=== PATIENT | female | born 1945 | race Caucasian/White ===

== ENCOUNTER → 2016-10-17 | Outpatient (CLI) | payer BC ==
[~2016-10-17] VITALS: Ht 160 cm; Wt 81.1 kg
[~2016-10-17] MED LIST: ABL/5 PO; ABL5 PO; ASPI81TA28 PO; B-CO1CAP3 PO; BIOT1CAP3 PO; BUPR-79 PO; BUPRTAB51 PO; BUSP-8 PO; CGN5 PO; CHOL20005 PO; CYAN50003 PO; DRGTP50 TOP; FENT50DI19 TD; GABA1CAP PO; GABA300C19 PO; L-ME1CAP PO; MECL1TAB42 PO; OMEP20CA9 PO; RANI300T2 PO; ROPI0.5T15 PO; SERT1TAB92 PO; ZOLP5TAB6 PO
[2016-10-17 15:01] VITALS: BP 127/79; PULSE 66; Ht 160 cm; Wt 81.1 kg
== END | disposition home or self-care (01) ==
LOC: C.NEUR 14:11
PROVIDERS: ATTEND Internal Medicine Pulmonary Disease
DX: G47.30 Sleep apnea, unspecified (principal)

== ENCOUNTER → 2016-10-29 | Outpatient (CLI) | payer BC ==
[2016-10-29 14:14] LABS: BLOOD UREA NITROGEN 17 mg/dl (7-18); BUN/CREATININE RATIO 16.9 (10-20); CARBON DIOXIDE 31 mmol/L (21-32); CHLORIDE 105 mmol/L (98-107); GLUCOSE 88 mg/dl (70-99); GLUCOSE,FASTING 88 mg/dl (70-99); POTASSIUM 4.2 mmol/L (3.5-5.1); SODIUM 142 mmol/L (136-145)
[2016-10-29 14:25] LABS: CHOLESTEROL 304 mg/dl (0-200); CHOLESTEROL/HDL RATIO 2.9; HDL CHOLESTEROL 104 mg/dl; LDL CHOLESTEROL CALCULATED 184 mg/dl; TRIGLYCERIDES 78 mg/dl (0-150); VERY LOW DENSITY LIPOPROT CALC 16 mg/dl
== END | disposition home or self-care (01) ==
LOC: C.LAB1850 12:18
PROVIDERS: ATTEND Psychiatry & Neurology Psychiatry
DX: F33.2 Major depressive disorder, recurrent severe without psychotic features (principal); Z51.81 Encounter for therapeutic drug level monitoring; Z79.899 Other long term (current) drug therapy

== ENCOUNTER → 2016-12-23 | Outpatient (CLI) | payer BC ==
[2016-12-24 17:08] LABS: ALBUMIN 4.4 G/DL (3.8-4.8); GAMMA GLOBULIN 0.6 G/DL (0.8-1.7); TOTAL PROTEIN 6.5 G/DL (6.2-8.3)
--- NOTE | 2016-12-27 10:35 | CODING QUERY MEDICAL NECESSITY ---
SUPPORTING DIAGNOSIS NEEDED Dr. Ram, A supporting diagnosis is required for the test/procedure performed on this patient in order for us to be reimbursed by the patient's insurance. Please provide a supporting diagnosis for the following test/procedure listed below next to the test name along with your signature. *If there is no additional diagnosis for this patient that would support the following test/procedure please document that below next to the test/procedure. Test(s)/Procedure(s) that require a supporting diagnosis: * ([id number]) B12 VITAMIN LEVEL DIAGNOSIS: DATE OF SERVICE: 12/23/16 Provider Signature: Date: Thank you Domenic Urban [facility] Information Management Once completed, please kindly fax back to [phone] For questions please call [phone]
== END | disposition home or self-care (01) ==
LOC: C.LAB1850 10:36
PROVIDERS: ATTEND Psychiatry & Neurology Neurology
DX: G62.9 Polyneuropathy, unspecified (principal); R41.3 Other amnesia

== ENCOUNTER → 2017-02-25 | Outpatient (CLI) | payer BC ==
[~2017-02-25] MED LIST changes: +BENZ0.5T28 PO; -CGN5 PO; +GABA-1218 PO; -GABA300C19 PO
--- NOTE | 2017-02-25 15:22 | MAMMOGRAPHY REPORT ---
BILATERAL DIGITAL SCREENING MAMMOGRAM WITH CAD: 02/25/2017 CLINICAL HISTORY: Routine screening. Patient has no complaints. TECHNIQUE: Bilateral CC and MLO views were obtained. Current study was also evaluated with a Comput er Aided Detection (CAD) system. COMPARISON: Comparison is made to exams dated: 02/20/2016 mammogram, 02/13/2015 mammogram, 02/11/2014 m ammogram, 02/10/2013 mammogram, 02/07/2012 mammogram, and 02/13/2011 mammogram - [facility] nter. BREAST COMPOSITION: The tissue of both breasts is heterogeneously dense, which may obscure small ma sses. FINDINGS: No new suspicious mass, architectural distortion or cluster of microcalcifications is see n. IMPRESSION: ACR BI-RADS CATEGORY 1: NEGATIVE There is no mammographic evidence of malignancy. A 1 year screening mammogram is recommended. The p atient will receive written notification of the results. Approximately 10% of breast cancers are not detected with mammography. A negative mammographic repor t should not delay biopsy if a clinically suggestive mass is present. Rolanda Cornejo M.D. ay/:02/25/2017 13:49:56 Varnish Blender: Jacey Sosa RT(R)(M)(BD), [facility] letter sent: Normal 1/2 BI-RADS Code: ACR BI-RADS Category 1: Negative
== END | disposition home or self-care (01) ==
LOC: C.MAMM 11:16
PROVIDERS: ATTEND Family Medicine
DX: Z12.31 Encounter for screening mammogram for malignant neoplasm of breast (principal)

== ENCOUNTER 2017-04-19 13:02 | Emergency (ER) | payer BC ==
[~2017-04-19] VITALS: Ht 157.5 cm; Wt 73.8 kg
[~2017-04-19 13:02] MED LIST changes: -ABL/5 PO; -ASPI81TA28 PO; -B-CO1CAP3 PO; -BENZ0.5T28 PO; -BIOT1CAP3 PO; -BUPR-79 PO; +CGN5 PO; -CHOL20005 PO; -CYAN50003 PO; -DRGTP50 TOP; -GABA-1218 PO; -GABA1CAP PO; -L-ME1CAP PO; -MECL1TAB42 PO; -OMEP20CA9 PO; -RANI300T2 PO
[2017-04-19 13:07] VITALS: TEMP 36.5; Ht 157.5 cm; Wt 73.8 kg
[2017-04-19] MEDS ORDERED: ABL/5 PO (13:48)
[2017-04-19] MEDS ORDERED: OMEP20CA9 PO (13:48)
[2017-04-19] MEDS ORDERED: GABA300C19 PO (13:48)
[2017-04-19] MEDS ORDERED: RANI300T2 PO (13:48)
[2017-04-19] MEDS ORDERED: L-ME1CAP PO (13:48)
[2017-04-19] MEDS ORDERED: DRGTP50 TOP (13:48)
[2017-04-19] MEDS ORDERED: BUPR-79 PO (13:48)
[2017-04-19] MEDS ORDERED: GABA1CAP PO (13:48)
[2017-04-19] MEDS ORDERED: ASPI81TA28 PO (13:48)
[2017-04-19] MEDS ORDERED: B-CO1CAP3 PO (13:53)
[2017-04-19] MEDS ORDERED: BIOT1CAP3 PO (13:53)
[2017-04-19] MEDS ORDERED: CYAN50003 PO (13:53)
[2017-04-19] MEDS ORDERED: CHOL20005 PO (13:53)
[2017-04-19] MEDS ORDERED: ACETAMINOPHEN 500 MG TAB PO STA (14:16)
--- NOTE | 2017-04-19 14:26 | EMERGENCY ROOM VISIT NOTE ---
ED Visit Note First contact with patient: 13:59 CHIEF COMPLAINT: Head injury HISTORY OF PRESENT ILLNESS: This 71 year old female patient presented to the emergency department one day after experiencing a fall striking her head. She attempted to sit down on a chair and misjudged the depth. She fell on her buttocks and then struck her head backwards against the concrete. There was no loss of consciousness. She does complain of a throbbing all over headache. She also is having vertiginous symptoms particularly with changes of position. She denies any visual disturbances. No nausea or vomiting. She denies any neck pain. She denies any other injuries. She takes a baby aspirin daily. REVIEW OF SYSTEMS: A review of systems was performed with positives and pertinent negatives listed in the history of present illness. All other systems were reviewed and are negative. ALLERGIES: No known drug allergies MEDICATIONS: Medication list was verified with patient PMH: Fibromyalgia SOCIAL HISTORY: Denies alcohol or drug use. She does not smoke. She lives at home with her PHYSICAL EXAM: Vital Signs: Reviewed Nurse's notes, vital signs stable. GENERAL : 71-year-old female, in no acute distress, well-developed, well-nourished. NEURO: The patient is alert, oriented to person place and time, and coherent. Normal mini mental status exam. Negative pronator drift. Cerebellar function intact. HEAD: Normocephalic atraumatic. EYES: Pupils are equal round and reactive to light and accommodation. EOMs are full . There is no swelling or discoloration of the tissue surrounding the eyes. EARS: External auditory canals clear without blood. NOSE: Patent without tenderness. No septal hematoma. FACE: No facial bone tenderness. NECK: Supple. There is no cervical spine tenderness. The patient does not have tenderness with movement of the neck. ED COURSE: I examined the patient. She was given [address] of the head was performed and reviewed. Patient: DALILA SWANSON Address1: [address] [place] [address] Rec: [id number] Address2: Acct ID: [id number] [facility] Zip: [place] [address] Date: 1945 Sex: F Room/Bed: Ref Phy: Aleah Shaffer,DSowmyaOSowmya SC: DANIEL Att Phy: Report #: [id number] Astrid Phy: Aleah Shaffer D.O. Test: HWO Admit Phy: [employer] Mk1 Operator: MARIANA Interpreting Phy: Peter Browning M.D. Diagnosis: FALL,HIT HEAD Ordering Phy: Aubree Monahan PA-C Service Date: 04/19/17 Admit Date: 04/19/17 MNE: [id number] CONF: DICTATED BY: Peter Browning M.D.]] CC: Aleah Shaffer D.O. Mishock, Kevin, D.O. Urban, Angela P., PA-C Endcc: [~ rep ct add3]] HEAD WITHOUT CONTRAST (CT) CT DOSE: 655.73 mGy.cm HISTORY: Trauma. Mental status change. head injury, vertigo TECHNIQUE: Multiaxial CT images of the head were performed without the use of intravenous contrast. Comparison: 06/18/2015 Findings: Chronic mucosal thickening of the posterior left ethmoid air cells. Mastoid air cells are clear. The calvarium and skull base are intact. The ventricles and sulci are within normal limits. There is no mass, hematoma, midline shift, or acute infarct. Stable dural calcification left considered chronic. No acute intracranial hemorrhage. Mild stable bilateral atrophy. Impression: Chronic changes as noted. No acute intracranial abnormality. The above report was generated using voice recognition software. It may contain grammatical, syntax or spelling errors. Electronically signed by: Peter Browning M.D. 04/19/2017 2:51 PM Dictated Date/Time: 04/19/2017 2:49 PM The status of this report is Signed. Draft = Not yet reviewed or approved by Radiologist. Signed = Reviewed and approved by Radiologist. . the patient was reevaluated. We reviewed the results of her CAT scan. She voiced understanding. The patient had difficulty ambulating. The emergency department staff tried to get her up to ambulate with a walker. She was still very unsteady on her feet. At this point, I suggested that we observe her overnight in the hospital to obtain PT/OT evaluations as I did not feel that she was safe to be discharged home. She refused admission. I asked the patient to allow me to obtain labs and a saline lock. She was hydrated with 1 L of normal saline and also given a dose of meclizine 25 mg po. I again reevaluated the patient. She complained of less dizziness. I still strongly recommended that the patient be observed overnight as I still felt that she was somewhat unsteady on her feet. She refused admission to the hospital. The patient was able to ambulate back to the bed from the restroom on her own. The patient was discharged home after discharge instructions were reviewed thoroughly. She was discharged with a walker. DIAGNOSIS: Head injury DISCHARGE INSTRUCTIONS: You were evaluated in the emergency department for a head injury. A CAT scan of your head did not show any bleeding in the brain. No skull fractures were noted. It is likely that you have a concussion given the dizziness you are experiencing. It was recommended that you stay in the hospital overnight for further evaluation as I did not think that you're steady on her feet. Please use a walker at all times. It is very important for you to follow up with her primary care physician within one week. If you change your mind, please return to the emergency department for further evaluation of your gait and steadiness. Please take meclizine 1 tab every 8 hours as needed for dizziness. Continue Tylenol 500 mg every 6 hours as needed for headache. Avoid ibuprofen, Advil, Motrin for the next 48 hours. Please follow up with your primary care physician within one week for a recheck Return to the emergency department if you have any of the following symptoms: -Severe headache -Changes in vision -Worsening dizziness -Weakness on one side of your body -Confusion -Difficulty speaking
--- NOTE | 2017-04-19 14:53 | DIAGNOSTIC IMAGING REPORT ---
HEAD WITHOUT CONTRAST (CT) CT DOSE: 655.73 mGy.cm HISTORY: Trauma. Mental status change. head injury, vertigo TECHNIQUE: Multiaxial CT images of the head were performed without the use of intravenous contrast. Comparison: 06/18/2015 Findings: Chronic mucosal thickening of the posterior left ethmoid air cells. Mastoid air cells are clear. The calvarium and skull base are intact. The ventricles and sulci are within normal limits. There is no mass, hematoma, midline shift, or acute infarct. Stable dural calcification left considered chronic. No acute intracranial hemorrhage. Mild stable bilateral atrophy. Impression: Chronic changes as noted. No acute intracranial abnormality. The above report was generated using voice recognition software. It may contain grammatical, syntax or spelling errors. Electronically signed by: Peter Browning M.D. 04/19/2017 2:51 PM Dictated Date/Time: 04/19/2017 2:49 PM
[2017-04-19] MEDS ORDERED: MECL1TAB42 PO (15:08)
--- NOTE | 2017-04-19 15:14 | EMERGENCY ROOM VISIT NOTE ---
ED Visit Note First contact with patient: 13:59 I have personally seen and evaluated the patient with the physician assistant store leader. I agree with the diagnostic/management decisions and have personally been involved in these decisions and agree with the diagnosis.
[2017-04-19] MEDS ORDERED: MECLIZINE HCL 25 MG TAB PO STA (15:34)
[2017-04-19] MEDS ORDERED: SODIUM CHLORIDE 0.9% 1000ML 1,000 ML IV SCH (16:00)
[2017-04-19 16:11] LABS: BASO % 0.7 %; BASO ABS # 0.04 K/uL (0-0.2); COMPLETE YES; EOS % 2.7 %; HEMATOCRIT 42.1 % (37-47); IG% 0.2 %; LYMPH % 24.6 %; LYMPH ABS # 1.36 K/uL (1.2-3.4); MEAN CELL VOLUME 90.3 fL (80-100); MEAN CORPUSCULAR HEMOGLOBIN 30.9 pg (25-34); MEAN CORPUSCULAR HGB CONC 34.2 g/dl (32-36); MEAN PLATELET VOLUME 9.6 fL (7.4-10.4); MONO % 11.2 %; NEUT % 60.6 %; PLATELET COUNT 192 K/uL (130-400); RED BLOOD COUNT 4.66 M/uL (4.2-5.4); WHITE BLOOD COUNT 5.52 K/uL (4.8-10.8)
[2017-04-19 16:27] LABS: BUN/CREATININE RATIO 15.8 (10-20); CALCIUM 9.2 mg/dl (8.5-10.1); CREATININE 1.1 mg/dl (0.60-1.20); POTASSIUM 3.5 mmol/L (3.5-5.1)
[2017-04-19 18:19] VITALS: BP 144/77; PULSE 57; O2SAT 97
== END 2017-04-19 18:20 | disposition home or self-care (01) ==
LOC: C.EDB 13:03
DX: S09.90XA Unspecified injury of head, initial encounter (principal); W07.XXXA Fall from chair, initial encounter

== ENCOUNTER 2017-10-01 21:19 | Inpatient (IN) | payer BC, OTHER ==
[~2017-10-01] VITALS: Ht 157.5 cm; Wt 69.7 kg
[~2017-10-01 21:19] MED LIST changes: +ABL/5 PO; -ABL5 PO; +ASPI81TA28 PO; +B-CO1CAP3 PO; +BIOT1CAP3 PO; +BUPR-79 PO; -BUSP-8 PO; -CGN5 PO; +CHOL20005 PO; +CYAN50003 PO; +DRGTP50 TOP; -FENT50DI19 TD; +GABA-1218 PO; +GABA-1693 PO; +L-ME1CAP PO; +OMEP20CA9 PO; +RANI300T2 PO; -ZOLP5TAB6 PO
--- NOTE | 2017-10-01 22:12 | EMERGENCY ROOM VISIT NOTE ---
History Report prepared by Bao: Brenna Siddiqui Under the Supervision of: Dr. Brionna Zarco M.D. First contact with patient: 21:47 Chief Complaint: FALL Stated Complaint: FALLS, CONFUSION History of Present Illness The patient is a 72 year old female who presents to the Emergency Room with complaints of a fall occurring last night. She states that her cousin and said that she was crawling on the floor at home. Her family also said that she was hallucinating, but she does not remember this. She reports having neck pain and denies having fevers. She states that she has had nerve pain in her legs beginning 2 months ago, but states that nothing in particular caused it. She states that her leg pain is not constant and that it happens at night. She reports a history of depression and anxiety. Source of History: patient Onset: last night Position: other (global) Quality: other (fall) Associated Symptoms: + neck pain, No fevers Review of Systems See HPI for pertinent positives & negatives. A total of 10 systems reviewed and were otherwise negative. Past Medical & Surgical Medical Problems: (1) Hx of transient ischemic attack (TIA) (2) Restless leg syndrome Family History No pertinent family history stated. Social History Smoking Status: Never Smoker Alcohol Use: none Marital Status: Housing Status: lives with significant other Occupation Status: employed Current/Historical Medications Scheduled Amantadine Hcl (Amantadine Hcl), 100 MG PO QAM Aripiprazole (Abilify), 5 MG PO QAM Aspirin (Aspirin Ec), 81 MG PO HS B-Complex Vitamins (B Complex), 1 CAP PO QAM Biotin (Biotin), 10,000 UNITS PO QAM Bupropion (Wellbutrin-Xl), 300 MG PO QAM Bupropion (Wellbutrin Sr), 150 MG PO QAM Buspirone Hcl (Buspirone Hcl), 20 MG PO TID Cholecalciferol (Vitamin D3), 2,000 UNITS PO QAM Cyanocobalamin (Cvs B-12), 5,000 MCG PO QAM Fentanyl (Fentanyl), 50 MCG TOP Q48H Gabapentin (Neurontin), 100 MG PO TID Gabapentin (Neurontin), 300 MG PO TID Propranolol (Inderal), 10 MG PO BID Ranitidine (Zantac), 300 MG PO HS Ropinirole (Requip), 0.5 MG PO HS Sertraline HCl (Sertraline HCl), 200 MG PO QAM Scheduled PRN Oxycodone Ir (Roxicodone Ir), 5 MG PO DIRECTED PRN for Severe Pain Allergies Coded Allergies: Dog Dander (Verified Allergy, Unknown, UNKNOWN, 10/01/17) Molds and Smuts (Verified Allergy, Unknown, UNKNOWN, 10/01/17) POLLEN (Verified Allergy, Unknown, SEASONAL-LATE SUMMER/FALL, 10/01/17) Sulfa Drugs (Verified Allergy, Unknown, unknown, 10/01/17) Physical Exam Vital Signs Date Time Temp Pulse Resp B/P (MAP) Pulse Ox O2 Delivery O2 Flow Rate FiO2 10/02/17 00:05 55 18 94 10/02/17 00:00 134/71 10/01/17 23:50 57 21 10/01/17 23:35 57 21 92 10/01/17 23:20 58 17 94 10/01/17 23:13 139/75 10/01/17 23:00 60 19 97 10/01/17 22:45 62 25 10/01/17 21:36 177/63 10/01/17 21:26 37.0 75 18 98 Room Air Physical Exam Vital signs reviewed. General: Chronically ill-appearing female, pale, jittery in no significant distress. HEENT: No scleral icterus, PERRLA, neck supple. Atraumatic. Cardiovascular: Regular rate and rhythm, no extra sounds. Pulmonary: Clear to auscultation bilaterally, normal work of breathing. Abdomen: Soft, nontender, nondistended, positive bowel sounds. Musculoskeletal: Atraumatic, no peripheral edema. Right hand bruising over the fourth and fifth metacarpal. Neurologic: Patient awake alert and oriented x 3, and seen with constant motion of the bilateral lower extremities. Periodic twitching. Generalized weakness. Unable to bear weight with assistance reliably. Skin: Warm, dry, no rash Medical Decision & Procedures ER Provider Diagnostic Interpretation: Head CT: Compared to 04/19/2017. No intracranial hemorrhage or skull fracture. Chronic findings similar to prior. Radiologist: Ginna Bishop MD Laboratory Results 10/01/17 22:33 Red Blood Count 4.59, Mean Corpuscular Volume 88.5, Mean Corpuscular Hemoglobin 30.5, Mean Corpuscular Hemoglobin Concent 34.5, Mean Platelet Volume 10.2, Neutrophils (%) (Auto) 62.8, Lymphocytes (%) (Auto) 24.1, Monocytes (%) (Auto) 11.2, Eosinophils (%) (Auto) 1.1, Basophils (%) (Auto) 0.5, Neutrophils # (Auto ) 4.77, Lymphocytes # (Auto) 1.83, Monocytes # (Auto) 0.85, Eosinophils # (Auto ) 0.08, Basophils # (Auto) 0.04 10/01/17 22:33 Test 10/01/17 22:33 White Blood Count 7.59 K/uL (4.8-10.8) Red Blood Count 4.59 M/uL (4.2-5.4) Hemoglobin 14.0 g/dL (12.0-16.0) Hematocrit 40.6 % (37-47) Mean Corpuscular Volume 88.5 fL (80-100) Mean Corpuscular Hemoglobin 30.5 pg (25-34) Mean Corpuscular Hemoglobin Concent 34.5 g/dl (32-36) Platelet Count 180 K/uL (130-400) Mean Platelet Volume 10.2 fL (7.4-10.4) Neutrophils (%) (Auto) 62.8 % Lymphocytes (%) (Auto) 24.1 % Monocytes (%) (Auto) 11.2 % Eosinophils (%) (Auto) 1.1 % Basophils (%) (Auto) 0.5 % Neutrophils # (Auto) 4.77 K/uL (1.4-6.5) Lymphocytes # (Auto) 1.83 K/uL (1.2-3.4) Monocytes # (Auto) 0.85 K/uL (0.11-0.59) Eosinophils # (Auto) 0.08 K/uL (0-0.5) Basophils # (Auto) 0.04 K/uL (0-0.2) RDW Standard Deviation 41.8 fL (36.4-46.3) RDW Coefficient of Variation 13.0 % (11.5-14.5) Immature Granulocyte % (Auto) 0.3 % Immature Granulocyte # (Auto) 0.02 K/uL (0.00-0.02) Anion Gap 10.0 mmol/L (3-11) Est Creatinine Clear Calc Drug Dose 48.5 ml/min Estimated GFR () 71.1 Estimated GFR (Non- 61.3 BUN/Creatinine Ratio 20.8 (10-20) Calcium Level 9.1 mg/dl (8.5-10.1) Magnesium Level 2.3 mg/dl (1.8-2.4) Total Bilirubin 0.5 mg/dl (0.2-1) Direct Bilirubin < 0.1 mg/dl (0-0.2) Aspartate Amino Transf (AST/SGOT) 21 U/L (15-37) Alanine Aminotransferase (ALT/SGPT) 28 U/L (12-78) Alkaline Phosphatase 76 U/L (45-117) Ammonia 17.7 umol/L (11-32) Total Protein 6.9 gm/dl (6.4-8.2) Albumin 4.0 gm/dl (3.4-5.0) Thyroid Stimulating Hormone (TSH) 2.040 uIu/ml (0.300-4.500) Salicylates Level < 1.7 mg/dl (2.8-20) Acetaminophen Level < 2 ug/ml (10-30) Ethyl Alcohol mg/dL < 3.0 mg/dl (0-3) Laboratory results per my review. Medications Administered Medications (Trade) Dose Ordered Sig/Pippa Route Start Time Stop Time Status Last Admin Dose Admin Lorazepam (Ativan Inj) 0.5 mg NOW STAT IV 10/01/17 22:46 10/01/17 22:49 DC 10/01/17 22:59 0.5 MG ECG Indication: weakness Rate (beats per minute): 56 Rhythm: sinus bradycardia Findings: RBBB, no acute ischemic change, no ectopy ED Course 2199: Past medical records reviewed. The patient was evaluated in room B4B. A complete history and physical examination was performed. 2245: Ordered Ativan Inj 0.5 mg IV. Medical Decision Differential diagnosis: Etiologies such as mood disorder, infection, hypoglycemia, electrolyte abnormalities, cardiac sources, intracerebral event, toxicologic, neurologic, as well as others were entertained. This patient was evaluated and appeared to be in no significant distress. She does seem to have difficulty with a restless leg picture of the lower extremities. The patient apparently was hallucinating earlier this evening and crawling on the floor. She states she falls several times daily sometimes catching herself. Patient does have bruise to the right hand, x-ray is negative for acute fracture. Head CT reveals no evidence of acute intracranial abnormality. EKG is a sinus bradycardia without ischemia. The patient was unable to ambulate to the bathroom. She had assistance from nursing staff. They felt she is too unsteady to attempt further and put her back in bed. After review the patient's medication list I feel strongly that this is likely contributing to her gait imbalance and frequent falls. Her medications may also be contributed to her hallucinations. At this time is not safe to discharge the patient. She will be evaluated by the medicine service for further management. Patient is aware of the plan and agrees. Impression Primary Impression: Hallucinations Additional Impressions: Restless leg syndrome Hand contusion Polypharmacy Scribe Attestation The scribe's documentation has been prepared under my direction and personally reviewed by me in its entirety. I confirm that the note above accurately reflects all work, treatment, procedures, and medical decision making performed by me. Departure Information Referrals Aleah Shaffer D.O. (PCP) Patient Instructions My [facility] [address] Problem Qualifiers
[2017-10-01] MEDS ORDERED: PROP10TA7 PO (22:26)
[2017-10-01] MEDS ORDERED: AMAN100C18 PO (22:26)
[2017-10-01] MEDS ORDERED: OXYC-90 PO (22:26)
[2017-10-01] MEDS ORDERED: BUSP-8 PO (22:26)
[2017-10-01] MEDS ORDERED: LORAZEPAM 2 MG/ML 1 ML VIAL IV STA (22:46)
[2017-10-01 22:53] LABS: BASO % 0.5 %; BASO ABS # 0.04 K/uL (0-0.2); EOS % 1.1 %; EOS ABS # 0.08 K/uL (0-0.5); HEMATOCRIT 40.6 % (37-47); IG# 0.02 K/uL (0.00-0.02); LYMPH % 24.1 %; LYMPH ABS # 1.83 K/uL (1.2-3.4); MEAN CELL VOLUME 88.5 fL (80-100); MEAN CORPUSCULAR HEMOGLOBIN 30.5 pg (25-34); MEAN CORPUSCULAR HGB CONC 34.5 g/dl (32-36); MEAN PLATELET VOLUME 10.2 fL (7.4-10.4); MONO % 11.2 %; MONO ABS # 0.85 K/uL (0.11-0.59); NEUT % 62.8 %; NEUT ABS # 4.77 K/uL (1.4-6.5); PLATELET COUNT 180 K/uL (130-400); RED CELL DISTRIBUTION WIDTH SD 41.8 fL (36.4-46.3); WHITE BLOOD COUNT 7.59 K/uL (4.8-10.8)
[2017-10-01 23:12] LABS: ALT/SGPT 28 U/L (12-78); BLOOD UREA NITROGEN 19 mg/dl (7-18); CALCIUM 9.1 mg/dl (8.5-10.1); CARBON DIOXIDE 26 mmol/L (21-32); CREATININE 0.92 mg/dl (0.60-1.20); GLUCOSE 94 mg/dl (70-99); POTASSIUM 3.5 mmol/L (3.5-5.1); SODIUM 143 mmol/L (136-145)
[2017-10-01 23:23] LABS: ALKALINE PHOSPHATASE 76 U/L (45-117); AST/SGOT 21 U/L (15-37); TOTAL PROTEIN 6.9 gm/dl (6.4-8.2)
[2017-10-02] VITALS (11 sets, daily range): BP systolic 121–167; BP diastolic 60–91; PULSE 49–66; TEMP 36.4–36.9; O2SAT 92–96; Ht 157.5 cm; Wt 69.7 kg
[2017-10-02] MEDS ORDERED: ONDANSETRON 8MG OD TAB PO PRN (01:15)
[2017-10-02] MEDS ORDERED: LORAZEPAM 2 MG/ML 1 ML VIAL IV PRN (01:30)
--- NOTE | 2017-10-02 01:30 | History and Physical ---
History & Physical Date & Time of Service: Oct 02, 2017 at 01:30 Chief Complaint: Falls, Confusion Primary Care Physician: Aleah Shaffer D.O. History of Present Illness Source: patient, hospital records The patient is a 72-year-old female who presents to the emergency department after a fall that occurred at home. She reports that her cousin and report they found her crawling on the floor at home, and also reports that she was hallucinating, but she does not remember any of this. She reports medical problems including intermittent leg pain that began 2 months ago, depression and anxiety. She has not had any recent travels or sick exposures. She does not report any new medications including OTC. Past Medical/Surgical History Medical Problems: (1) Hx of transient ischemic attack (TIA) Status: Resolved (2) Restless leg syndrome Status: Chronic Family History Noncontributory Social History Smoking Status: Never Smoker Smokeless Tobacco Use: No Alcohol Use: none Drug Use: none Marital Status: Housing status: lives with family Occupational Status: employed Immunizations History of Influenza Vaccine: Yes Influenza Vaccine Date: Sep 04, 2010 History of Tetanus Vaccine?: Unknown History of Pneumococcal: Yes History of Hepatitis B Vaccine: No Multi-Drug Resistant Organisms History of MDRO: No Allergies Coded Allergies: Dog Dander (Verified Allergy, Unknown, UNKNOWN, 10/01/17) Molds and Smuts (Verified Allergy, Unknown, UNKNOWN, 10/01/17) POLLEN (Verified Allergy, Unknown, SEASONAL-LATE SUMMER/FALL, 10/01/17) Sulfa Drugs (Verified Allergy, Unknown, unknown, 10/01/17) Home Medications Scheduled Amantadine Hcl (Amantadine Hcl), 100 MG PO QAM Aripiprazole (Abilify), 5 MG PO QAM Aspirin (Aspirin Ec), 81 MG PO HS B-Complex Vitamins (B Complex), 1 CAP PO QAM Biotin (Biotin), 10,000 UNITS PO QAM Bupropion (Wellbutrin-Xl), 300 MG PO QAM Bupropion (Wellbutrin Sr), 150 MG PO QAM Buspirone Hcl (Buspirone Hcl), 20 MG PO TID Cholecalciferol (Vitamin D3), 2,000 UNITS PO QAM Cyanocobalamin (Cvs B-12), 5,000 MCG PO QAM Fentanyl (Fentanyl), 50 MCG TOP Q48H Gabapentin (Neurontin), 100 MG PO TID Gabapentin (Neurontin), 300 MG PO TID Propranolol (Inderal), 10 MG PO BID Ranitidine (Zantac), 300 MG PO HS Ropinirole (Requip), 0.5 MG PO HS Sertraline HCl (Sertraline HCl), 200 MG PO QAM Scheduled PRN Oxycodone Ir (Roxicodone Ir), 5 MG PO DIRECTED PRN for Severe Pain Review of Systems The patient denies chest pain, palpitations, shortness of breath, cough, lower extremity swelling, vision change, hearing change, sore throat, fevers, chills, sweats, weight change, nausea, vomiting, diarrhea or constipation, abdominal pain, pelvic pain, blood in urine or stool, dysuria, urinary frequency or urgency, loss of consciousness, rash, abnormal bruising or bleeding, imbalance, focal weakness, numbness or tingling in arms, generalized arthralgias or myalgias, back pain, or night sweats. The review of systems is otherwise negative other than for that already noted above, and at least 10 systems have been reviewed. Physical Exam Vital Signs Date Time Temp Pulse Resp B/P (MAP) Pulse Ox O2 Delivery O2 Flow Rate FiO2 10/02/17 00:40 57 23 94 10/02/17 00:25 56 17 93 10/02/17 00:10 58 19 92 10/02/17 00:05 55 18 94 10/02/17 00:00 134/71 10/01/17 23:50 57 21 10/01/17 23:35 57 21 92 10/01/17 23:20 58 17 94 10/01/17 23:13 139/75 10/01/17 23:00 60 19 97 10/01/17 22:45 62 25 10/01/17 21:36 177/63 10/01/17 21:26 37.0 75 18 98 Room Air The patient is awake, alert and oriented 2, normocephalic and atraumatic, lying in bed and in no acute distress. She requires a 2 person assist to walk to the bathroom. HEENT--PERRL, EOMI, mucous membranes and oropharynx dry. Neck--supple, no JVD or bruits, thyroid normal, trachea midline, no adenopathy. Heart--normal S1 and S2, no extra beats, no murmurs, rubs or gallops. Lungs--diminished throughout, no respiratory distress, no accessory muscle use. Abdomen--normal bowel sounds and soft, nontender and nondistended, no hernias or masses. Extremities--no cyanosis, clubbing or edema. There are good distal pulses b/l. Dermatologic--skin is dry, no abnormal lymph nodes. Neurologic--cranial nerves II through XII grossly intact. Rheumatologic--normal range of motion. Psychiatric--flat affect. Diagnostics Laboratory Results Results Past 24 Hours Test 10/01/17 22:33 Range/Units White Blood Count 7.59 4.8-10.8 K/uL Red Blood Count 4.59 4.2-5.4 M/uL Hemoglobin 14.0 12.0-16.0 g/dL Hematocrit 40.6 37-47 % Mean Corpuscular Volume 88.5 80-100 fL Mean Corpuscular Hemoglobin 30.5 25-34 pg Mean Corpuscular Hemoglobin Concent 34.5 32-36 g/dl Platelet Count 180 130-400 K/uL Mean Platelet Volume 10.2 7.4-10.4 fL Neutrophils (%) (Auto) 62.8 % Lymphocytes (%) (Auto) 24.1 % Monocytes (%) (Auto) 11.2 % Eosinophils (%) (Auto) 1.1 % Basophils (%) (Auto) 0.5 % Neutrophils # (Auto) 4.77 1.4-6.5 K/uL Lymphocytes # (Auto) 1.83 1.2-3.4 K/uL Monocytes # (Auto) 0.85 0.11-0.59 K/uL Eosinophils # (Auto) 0.08 0-0.5 K/uL Basophils # (Auto) 0.04 0-0.2 K/uL RDW Standard Deviation 41.8 36.4-46.3 fL RDW Coefficient of Variation 13.0 11.5-14.5 % Immature Granulocyte % (Auto) 0.3 % Immature Granulocyte # (Auto) 0.02 0.00-0.02 K/uL Sodium Level 143 136-145 mmol/L Potassium Level 3.5 3.5-5.1 mmol/L Chloride Level 107 98-107 mmol/L Carbon Dioxide Level 26 21-32 mmol/L Anion Gap 10.0 3-11 mmol/L Blood Urea Nitrogen 19 7-18 mg/dl Creatinine 0.92 0.60-1.20 mg/dl Est Creatinine Clear Calc Drug Dose 48.5 ml/min Estimated GFR () 71.1 Estimated GFR (Non- 61.3 BUN/Creatinine Ratio 20.8 10-20 Random Glucose 94 70-99 mg/dl Calcium Level 9.1 8.5-10.1 mg/dl Magnesium Level 2.3 1.8-2.4 mg/dl Total Bilirubin 0.5 0.2-1 mg/dl Direct Bilirubin < 0.1 0-0.2 mg/dl Aspartate Amino Transf (AST/SGOT) 21 15-37 U/L Alanine Aminotransferase (ALT/SGPT) 28 12-78 U/L Alkaline Phosphatase 76 45-117 U/L Ammonia 17.7 11-32 umol/L Total Protein 6.9 6.4-8.2 gm/dl Albumin 4.0 3.4-5.0 gm/dl Thyroid Stimulating Hormone (TSH) 2.040 0.300-4.500 uIu/ml Salicylates Level < 1.7 2.8-20 mg/dl Acetaminophen Level < 2 10-30 ug/ml Ethyl Alcohol mg/dL < 3.0 0-3 mg/dl Microbiology Results 10/02/17 Urine Culture, Received Pending Impression Assessment and Plan Hallucinations/polypharmacy/significant ambulatory dysfunction with shuffling gait and need for support/history of TIA-- Admit to the telemetry unit. Order an MRI of the brain combo when she is able to tolerate Question whether she may be inadvertently taking excess dosages of medications. For now we will make the following adjustments: Continue amantadine 100 mg every morning, aspirin 81 mg daily, propranolol 10 mg by mouth twice a day, buspirone 20 mg by mouth 3 times a day and sertraline 200 mg by mouth every morning. Decrease gabapentin 400-300 mg by mouth 3 times a day. Decrease Wellbutrin to XL 300 mg by mouth every morning and hold SR 150 mg every morning Hold Abilify 5 mg every morning until seen by Dr. Amaro. Place on modified [facility] program. Restless leg syndrome-- Continue Requip 0.5 mg by mouth at bedtime GERD-- Continue ranitidine 300 mg by mouth at bedtime Pain management regimen-- Concern regarding a possible overuse of fentanyl for oxycodone. Hold fentanyl patch 50 g topically 48 hours intervals and oxycodone IR 5 mg by mouth for severe pain, until use verified. Nutraceuticals-- Continue B complex, Biotin, B12 and vitamin D 3 Level of Care Telemetry Advanced Directives Existing Advance Directive: No Existing Living Will: No Existing Power of Foreign Banknote Teller: No Resuscitation Status FULL RESUSCITATION VTE Prophylaxis VTE Risk Assessment Done? Y/N: Yes Risk Level: Moderate Given or contraindicated: SCD's
--- NOTE | 2017-10-02 02:35 | NUR ---
Patient arrives to room 277-2 at this time via stretcher as inpatient status for falls and confusion/hallucinations from home. Patient attempted to ambulate from stretcher to bed, but was too unsteady even with x2 assistance. Able to acquire a standing weight, then patient was placed back into stretcher and transferred to bed. quality assurance monitor final applied reading sinus bradycardia on telemetry, vital signs obtained, and oriented to room. Able to demonstrate use of call mccartney and agrees to red socks fall risk. Code word and fall risk forms completed at this time. Admission information obtained at this time, see EMR for admission details. Patient is currently fully alert and oriented, answers questions appropriately and accurately. Patient is noted to have bruising to the R hand with some associated edema, noted trace nonpitting edema to bilateral ankles. 18ga in the L AC patent with good blood return. Bed alarm set, denies needs upon leaving the room.
[2017-10-02] MEDS: NSS + 20MEQ KCL 1000ML 1,000 ML IV SCH ×2 (05:43→17:09)
--- NOTE | 2017-10-02 07:13 | DIAGNOSTIC IMAGING REPORT ---
HEAD WITHOUT CONTRAST (CT) CT DOSE: 537.48 mGy.cm HISTORY: Mental status change AMS TECHNIQUE: Multiaxial CT images of the head were performed without the use of intravenous contrast. A dose lowering technique was utilized adhering to the principles of ALARA. Comparison: 04/19/2017 Findings: The paranasal sinuses and mastoid air cells are clear. The calvarium and skull base are intact. The ventricles and sulci are within normal limits. There is no mass, hematoma, midline shift, or acute infarct. Stable findings of frontal and convexity atrophy. Stable dural calcification left lateral temporal bone. No evidence for acute intracranial hemorrhage. Impression: Stable chronic change. No acute intracranial abnormality. The above report was generated using voice recognition software. It may contain grammatical, syntax or spelling errors. Electronically signed by: Peter Browning M.D. 10/02/2017 7:12 AM Dictated Date/Time: 10/02/2017 7:10 AM
--- NOTE | 2017-10-02 07:42 | DIAGNOSTIC IMAGING REPORT ---
R HAND MIN 3 VIEWS ROUTINE CLINICAL HISTORY: Right hand contusion. Right hand pain. COMPARISON STUDY: None. FINDINGS: There is a pulse oximeter obscuring the distal phalanx of the right index finger. Dorsal soft tissue swelling within the right hand. No fracture or dislocation. Moderate to severe osteoarthritis seen within the first carpometacarpal joint and DIP joints of the third through fifth digits. IMPRESSION: No fracture or dislocation within the right hand. Electronically signed by: Presley Kyle M.D. 10/02/2017 7:41 AM Dictated Date/Time: 10/02/2017 7:38 AM
--- NOTE | 2017-10-02 08:00 | NUR ---
A: Pt is alert and oriented x 4. Pt denies any pain. Pt 1 mod assist stand and pivot to BSC. Pt states she feels off balance more then weakness. Pt is Sinus rhythm with an IVCD on monitor. Pt fed self 100% for breakfast and tolerated well.
[2017-10-02] MEDS: CYANOCOBALAMIN 2,500 MCG SUBL TAB PO SCH (08:24)
[2017-10-02] MEDS: BuPROPion XL 300 MG TABCR PO SCH (08:25)
[2017-10-02] MEDS: CHOLECALCIFEROL 1000 INTER.UNIT TAB PO SCH (08:25)
[2017-10-02] MEDS: BuPROPion XL 150 MG TABCR PO SCH (08:25)
[2017-10-02] MEDS: SERTRALINE HCL 100 MG TAB PO SCH (08:26)
[2017-10-02] MEDS: PROPRANOLOL HCL 10 MG TAB PO SCH ×2 (08:27→21:00)
[2017-10-02] MEDS: VITAMIN B COMPLEX TAB PO SCH (08:37)
[2017-10-02] MEDS ORDERED: BIOTIN 10000 UNIT PO SCH (09:00)
[2017-10-02] MEDS ORDERED: GABAPENTIN 300 MG CAP PO SCH (09:00)
--- NOTE | 2017-10-02 11:12 | NUR ---
Case Management- Met with patient in room per physician consult. Patient lives with her in a split level home she has six to seven steps to enter. She is normally independent with all adls she uses a walker with a seat to ambulate. She uses cpap at night equipment through [facility]. She reports she still drives. Patient reports she plans to return home on discharge. PT/OT may be beneficial to ensure safety returning home. CM following
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
[2017-10-02] MEDS ORDERED: ARIPIprazole TAB 5 MG TAB PO ONE (12:00)
--- NOTE | 2017-10-02 12:00 | NUR ---
A: Pt has good appetite. Pt states she is not weak. Transfers to chair improved.
--- NOTE | 2017-10-02 12:15 | NUR ---
PSYCHIATRIC LIAISON NURSE-- Attempted to call Ger 2 times, once on the liaison cell phone and once from the [facility] phone. Left generic voicemail with no patient identifiers to return phone call to the liaison cell phone. If Primary Team sees patient's , please contact the liaison on duty as we need to confirm medications at home with . Will notify Primary RN.
[2017-10-02] MEDS ORDERED: GADAVIST IV PRN (14:30)
--- NOTE | 2017-10-02 14:42 | NUR ---
Fentanyl Patch 50 Mcq removed from lt upper arm for MRI. Should have been removed in ED. Not ordered. Wasted per protocol with Prabha Montejo RN. Addendum: 10/02/17 at 1446 by Prabha Ventura RN Fentanyl 50mcg patch wasted with joby jain RN
--- NOTE | 2017-10-02 14:47 | Progress Note ---
Subjective Date of Service: Oct 02, 2017. Subjective Pt evaluation today including: conversation w/ patient, physical exam, lab review, review of studies, review of inpatient medication list Pain: denies pain PO Intake: adequate Voiding: no voiding problems long talk with patient regarding her symptoms she feels that her weakness and poor coordination started shortly after the [place] in May she describes "feeling like she is drunk" although she denies any spinning sensation whenever she stands up it takes her 30 seconds to gain her bearings before walking she feels like her movements are slow, she has a resting tremor bilateral arms she has been falling at home more recently, over the past month at no time did she actually loose consciousness she said she was seen by Dr. Anthony in the office for these symptoms but at that time the symptoms were not as bad she has had neuropathy for years, she does not feel it is getting worse reviewed labs and imaging from admission, unremarkable currently patient is not confused, not hallucinating, excellent historian, can remember names of physicians she has seen and timeline of symptoms she tells me that her mom had Parkinson's and this concerns her Problem List Medical Problems: (1) Hallucinations Status: Acute (2) Hand contusion Status: Acute (3) Head injury, acute Status: Acute (4) Polypharmacy Status: Acute (5) Restless leg syndrome Status: Chronic Review of Systems Constitutional: + weakness, + fatigue Neurologic: + weakness, + numbness/tingling, + balance problems Psychiatric: + depression symptoms All Other Systems: Reviewed and Negative Medications Current Inpatient Medications Medications (Trade) Dose Ordered Sig/Pippa Route Start Time Stop Time Status Last Admin Dose Admin Ondansetron HCl (Zofran Odt) 8 mg Q6H PRN PO 10/02/17 01:15 11/01/17 01:14 Potassium Chloride/Sodium Chloride 1,000 ml @ 100 mls/hr Q10H IV 10/02/17 02:30 11/01/17 02:29 10/02/17 05:43 100 MLS/HR Aspirin (Ecotrin Tab) 81 mg HS PO 10/02/17 21:00 11/01/17 20:59 Vitamin B Complex (Vitamin B Complex) 1 tab QAM PO 10/02/17 09:00 11/01/17 08:59 10/02/17 08:37 1 TAB Bupropion HCl (Wellbutrin-Xl Tab) 150 mg QAM PO 10/02/17 09:00 11/01/17 08:59 10/02/17 08:25 150 MG Bupropion HCl (Wellbutrin-Xl Tab) 300 mg QAM PO 10/02/17 09:00 11/01/17 08:59 10/02/17 08:25 300 MG Propranolol HCl (Inderal Tab) 10 mg BID PO 10/02/17 09:00 11/01/17 08:59 10/02/17 08:27 10 MG Ropinirole HCl (Requip Tab) 0.5 mg HS PO 10/02/17 21:00 11/01/17 20:59 Sertraline HCl (Zoloft Tab) 200 mg QAM PO 10/02/17 09:00 11/01/17 08:59 10/02/17 08:26 200 MG Cholecalciferol (Vitamin D Tab) 2,000 inter.unit QAM PO 10/02/17 09:00 11/01/17 08:59 10/02/17 08:25 2,000 INTER.UNIT Cyanocobalamin (Vitamin B-12 Tab) 5,000 mcg QAM PO 10/02/17 09:00 11/01/17 08:59 10/02/17 08:24 5,000 MCG Ranitidine HCl (zANTac TAB) 300 mg HS PO 10/02/17 21:00 11/01/17 20:59 Lorazepam (Ativan Inj) PRN Dosing -Active Protocol Q1H PRN IV 10/02/17 01:30 11/01/17 01:29 Gabapentin (Neurontin Cap) 400 mg TID PO 10/02/17 14:00 11/01/17 13:59 Aripiprazole (Abilify Tab) 5 mg QAM PO 10/03/17 09:00 11/02/17 08:59 Buspirone HCl (Buspar Tab) 20 mg TID PO 10/02/17 14:00 11/01/17 13:59 Gadobutrol (Gadavist) 7 mmol UD PRN IV 10/02/17 14:30 10/06/17 14:29 Objective Vital Signs Date Time Temp Pulse Resp B/P (MAP) Pulse Ox O2 Delivery O2 Flow Rate FiO2 10/02/17 12:00 92 Room Air 10/02/17 11:40 36.8 55 18 128/75 (92) 92 Room Air 10/02/17 08:00 96 Room Air 10/02/17 07:40 36.5 50 18 121/70 (87) 96 Room Air 10/02/17 03:00 36.9 52 16 152/60 96 Room Air 10/02/17 01:30 56 93 10/02/17 01:15 56 21 93 10/02/17 01:01 141/48 10/02/17 01:00 56 19 95 10/02/17 00:56 54 10/02/17 00:40 57 23 94 10/02/17 00:25 56 17 93 10/02/17 00:10 58 19 92 10/02/17 00:05 55 18 94 10/02/17 00:00 134/71 10/01/17 23:50 57 21 10/01/17 23:35 57 21 92 10/01/17 23:20 58 17 94 10/01/17 23:13 139/75 10/01/17 23:00 60 19 97 10/01/17 22:45 62 25 10/01/17 21:36 177/63 10/01/17 21:26 37.0 75 18 98 Room Air Physical Exam General Appearance: WD/WN, no apparent distress Eyes: normal inspection, EOMI, sclerae normal ENT: normal ENT inspection, hearing grossly normal, pharynx normal Neck: supple, no adenopathy, no JVD, trachea midline Respiratory/Chest: chest non-tender, lungs clear, normal breath sounds, no respiratory distress, no accessory muscle use Cardiovascular: regular rate, rhythm, no edema, no gallop, no JVD, no murmur Abdomen: normal bowel sounds, non tender, soft, no organomegaly Extremities: normal range of motion, non-tender, normal inspection, no pedal edema, no calf tenderness, pelvis stable Neurologic/Psychiatric: 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, + abnormal gait, + sensory deficit (feet bilaterally), + pertinent finding (+ Rhomberg, balance even worse when closing eyes, poor finger to nose on the left side, difficulty with rapid alternating movements on left side) Laboratory Results Last 24 Hours Test 10/01/17 22:33 White Blood Count 7.59 K/uL Red Blood Count 4.59 M/uL Hemoglobin 14.0 g/dL Hematocrit 40.6 % Mean Corpuscular Volume 88.5 fL Mean Corpuscular Hemoglobin 30.5 pg Mean Corpuscular Hemoglobin Concent 34.5 g/dl Platelet Count 180 K/uL Mean Platelet Volume 10.2 fL Neutrophils (%) (Auto) 62.8 % Lymphocytes (%) (Auto) 24.1 % Monocytes (%) (Auto) 11.2 % Eosinophils (%) (Auto) 1.1 % Basophils (%) (Auto) 0.5 % Neutrophils # (Auto) 4.77 K/uL Lymphocytes # (Auto) 1.83 K/uL Monocytes # (Auto) 0.85 K/uL Eosinophils # (Auto) 0.08 K/uL Basophils # (Auto) 0.04 K/uL RDW Standard Deviation 41.8 fL RDW Coefficient of Variation 13.0 % Immature Granulocyte % (Auto) 0.3 % Immature Granulocyte # (Auto) 0.02 K/uL Sodium Level 143 mmol/L Potassium Level 3.5 mmol/L Chloride Level 107 mmol/L Carbon Dioxide Level 26 mmol/L Anion Gap 10.0 mmol/L Blood Urea Nitrogen 19 mg/dl Creatinine 0.92 mg/dl Est Creatinine Clear Calc Drug Dose 48.5 ml/min Estimated GFR () 71.1 Estimated GFR (Non- 61.3 BUN/Creatinine Ratio 20.8 Random Glucose 94 mg/dl Calcium Level 9.1 mg/dl Magnesium Level 2.3 mg/dl Total Bilirubin 0.5 mg/dl Direct Bilirubin < 0.1 mg/dl Aspartate Amino Transf (AST/SGOT) 21 U/L Alanine Aminotransferase (ALT/SGPT) 28 U/L Alkaline Phosphatase 76 U/L Ammonia 17.7 umol/L Total Protein 6.9 gm/dl Albumin 4.0 gm/dl Thyroid Stimulating Hormone (TSH) 2.040 uIu/ml Salicylates Level < 1.7 mg/dl Acetaminophen Level < 2 ug/ml Ethyl Alcohol mg/dL < 3.0 mg/dl Assessment and Plan 72 yo female with h/o fibromyalgia, restless leg, chronic pain, PTSD, depression presents with progressive weakness, poor balance, falls at home and then had hallucinations - Hallucinations and encephalopathy: resolved completely today appreciate psychiatry consult, unclear that it would be caused by polypharmacy, no new medications or dose changes will count medications to make sure there was no unintentional overdosing - Weakness, poor balance, falls unclear etiology, certainly the patient has neuropathy and she had difficulty standing, especially when closing her eyes suggesting poor proprioreception will check orthostatic vital signs no clear history of syncope as she has never lost consciousness MRI brain pending given her tremors, slow shuffling gait, poor balance, poor coordination, will ask neurology for their opinion of note, she did she Dr. Anthony months ago as outpatient, however, she says that her symptoms were not nearly as severe at that time PT/OT consults H/o TIA: continue aspirin Restless leg syndrome-- Continue Requip 0.5 mg by mouth at bedtime GERD-- Continue ranitidine 300 mg by mouth at bedtime Pain management regimen-- Concern regarding a possible overuse of fentanyl for oxycodone. Hold fentanyl patch 50 g topically 48 hours intervals and oxycodone IR 5 mg by mouth for severe pain, until use verified. Nutraceuticals-- Continue B complex, Biotin, B12 and vitamin D 3
--- NOTE | 2017-10-02 14:51 | DIAGNOSTIC IMAGING REPORT ---
MRI OF THE BRAIN WITHOUT AND WITH IV CONTRAST CLINICAL HISTORY: Altered mental status. COMPARISON STUDY: MRI of the brain September 04, [address] October 01, 2017. TECHNIQUE: Utilizing a 1.5 Ana magnet and dedicated coil, multiplanar, multiecho imaging of the brain was performed pre and postcontrast administration. IV administration of 7 mL of Gadavist contrast was uneventful. FINDINGS: There are no foci of restricted diffusion. No acute intracranial hemorrhage, midline shift or mass effect is present. Ventricular system is stable. Basilar cisterns are patent. There are no extra-axial collections. Flow-voids for the major intracranial vessels are present. There is no intracranial mass or pathologic enhancement. Prominence of extra-axial CSF spaces is unchanged and due to atrophy. A few punctate foci of signal abnormality suggest minimal small vessel disease. There is mild mucosal thickening of the left maxillary and ethmoid sinuses. Calvarial signal is normal. IMPRESSION: 1. No acute intracranial findings. 2. No change in appearance of the brain since MRI of September 04, 2010. Electronically signed by: Maximo Nunez M.D. 10/02/2017 2:49 PM Dictated Date/Time: 10/02/2017 2:33 PM
[2017-10-02] MEDS: GABAPENTIN 400 MG CAP PO SCH ×2 (14:58→21:10)
--- NOTE | 2017-10-02 15:35 | NUR ---
Pt screened for chewing/swallowing difficulty. Please refer to linked assessment Addendum: 10/02/17 at [address] Amended: Links added.
--- NOTE | 2017-10-02 16:00 | NUR ---
A: Pt a/ox4. 1 assist to bathroom with walker. C/o increased weakness/unsteady gait. Neg orthostatic hypotension. Bed alarm on for precautions. No other complaints at this time. Will monitor.
--- NOTE | 2017-10-02 20:00 | NUR ---
A: pt resting comfortably in bed. No complaints at this time. Pt aware of urine sample needed. SB on monitor. Will monitor.
[2017-10-02] MEDS ORDERED: ROPINIROLE HCL 1 MG TAB PO SCH (21:00)
[2017-10-02] MEDS ORDERED: ASPIRIN 81 MG ECTAB PO SCH (21:00)
[2017-10-02] MEDS ORDERED: RANITIDINE HCL 150 MG TAB PO SCH (21:00)
[2017-10-02] MEDS ORDERED: NURSING VERBAL MED ORDER ONE (21:30)
[2017-10-03] VITALS (7 sets, daily range): BP systolic 122–173; BP diastolic 59–82; PULSE 52–69; TEMP 36.7–36.8; O2SAT 93–98
--- NOTE | 2017-10-03 | NUR ---
A: Received care of pt. at 22:45. Pt. A+Ox4 at this time. Reports chronic 3/10 pain to lower back, refuses pain medication and heating pad. SB on monitoring analyst, HR-50's. For full assessment, see EMR. IVF infusing per orders. Pt. resting in bed, bed exit alarm on and call mccartney within reach. Will continue to monitor.
[2017-10-03] MEDS: NSS + 20MEQ KCL 1000ML 1,000 ML IV SCH ×2 (03:42→12:00)
--- NOTE | 2017-10-03 04:00 | NUR ---
A: Assessment unchanged, see EMR. SB on hospital monitor. Pt. oriented throughout night, denies hallucinations. Pt. resting in bed, bed exit alarm on and call mccartney within reach.
[2017-10-03 06:00] LABS: BASO % 0.7 %; BASO ABS # 0.04 K/uL (0-0.2); EOS % 2.7 %; EOS ABS # 0.16 K/uL (0-0.5); HEMATOCRIT 38.6 % (37-47); IG# 0.02 K/uL (0.00-0.02); LYMPH % 31.3 %; LYMPH ABS # 1.83 K/uL (1.2-3.4); MEAN CELL VOLUME 90.6 fL (80-100); MEAN CORPUSCULAR HEMOGLOBIN 30.5 pg (25-34); MEAN CORPUSCULAR HGB CONC 33.7 g/dl (32-36); MEAN PLATELET VOLUME 9.9 fL (7.4-10.4); MONO % 9.7 %; MONO ABS # 0.57 K/uL (0.11-0.59); NEUT % 55.3 %; NEUT ABS # 3.23 K/uL (1.4-6.5); PLATELET COUNT 158 K/uL (130-400); RED CELL DISTRIBUTION WIDTH CV 13.2 % (11.5-14.5); RED CELL DISTRIBUTION WIDTH SD 43.4 fL (36.4-46.3); WHITE BLOOD COUNT 5.85 K/uL (4.8-10.8)
[2017-10-03 06:08] LABS: INR 1.1 (0.9-1.1); PTT PATIENT 25.4 SECONDS (21.0-31.0)
[2017-10-03 06:35] LABS: ALBUMIN 3.6 gm/dl (3.4-5.0); ALT/SGPT 25 U/L (12-78); BLOOD UREA NITROGEN 18 mg/dl (7-18); CALCIUM 8.5 mg/dl (8.5-10.1); CARBON DIOXIDE 25 mmol/L (21-32); CREATININE 0.97 mg/dl (0.60-1.20); GLUCOSE 93 mg/dl (70-99); POTASSIUM 4.1 mmol/L (3.5-5.1); SODIUM 143 mmol/L (136-145)
[2017-10-03 06:39] LABS: ALKALINE PHOSPHATASE 70 U/L (45-117); AST/SGOT 15 U/L (15-37); TOTAL PROTEIN 6.3 gm/dl (6.4-8.2)
--- NOTE | 2017-10-03 08:00 | NUR ---
A: Pt is alert and oriented x 4. Pt denies any pain. Pt ambulating with walker and 1 assist to and from bathroom. Pt fed self 100% of breakfast. Pt is Sinus rhythm on monitor.
[2017-10-03] MEDS ORDERED: ARIPIprazole TAB 5 MG TAB PO SCH (09:00)
[2017-10-03] MEDS: SERTRALINE HCL 100 MG TAB PO SCH (09:04)
[2017-10-03] MEDS: CHOLECALCIFEROL 1000 INTER.UNIT TAB PO SCH (09:04)
[2017-10-03] MEDS: CYANOCOBALAMIN 2,500 MCG SUBL TAB PO SCH (09:04)
[2017-10-03] MEDS: VITAMIN B COMPLEX TAB PO SCH (09:05)
[2017-10-03] MEDS: PROPRANOLOL HCL 10 MG TAB PO SCH (09:05)
[2017-10-03] MEDS: GABAPENTIN 400 MG CAP PO SCH ×2 (09:06→14:23)
[2017-10-03] MEDS: BuPROPion XL 150 MG TABCR PO SCH (09:07)
[2017-10-03] MEDS: BuPROPion XL 300 MG TABCR PO SCH (09:08)
--- NOTE | 2017-10-03 10:22 | Neurology Consultation ---
Neurology Consultation Date of Consultation: Oct 03, 2017. Attending Physician: Arturo Yost D.O. Primary Care Physician: Aleah Shaffer D.O. Reason for Consultation: Patient is a 72-year-old, was asked to see the request of Dr. Yost, for neurologic consultation regarding acute episode of altered mental status and hallucinations with chronic gait and limb issues. Patient's daughter is at bedside History of Present Illness Source: patient, family, clinic records, hospital records Patient tells me that she has a longstanding history of tics involving twitches a movement of her face and limbs. This has been since teen years and continues to the present. Anxiety brings it out. Although she tells me that she carries a diagnosis of Tourette's syndrome, she has never had vocalizations or anything other than the motor tics. She has some control over these to a degree but most of the time that occur on their own. She has never really had any medication for these except what she is currently on. These twitches can bother her significantly at night and she has been diagnosed with restless legs syndrome and periodic limb movement disorder of sleep. She is on a very low dose of Requip 0.5 milligrams which she does not believe helps. She also tells me that she startles easily and has been so most of her life. She has tremor and was diagnosed with essential tremor by Dr. Ram who 1st saw her in December of 2016. She was initiated on propranolol 10 milligrams 3 times a day in mid-September of this year and feels that it does not make a difference. Apparently she was on propranolol in the past and I do not have any details regarding dose or outcome. She has fatigue and a notice that her pulse and pressure are low in the hospital. In addition the patient has had sloppy small handwriting recently. I see a sample of this and I concur. Patient has had 1 episode of head trauma about 15 years ago resulting in some concussive syndromes but no loss of consciousness. Again, in late April of this year she passed out and hit her head on the cement floor. There was no loss of consciousness. She had increased headaches, dizziness, and other symptoms leading to a diagnosis of concussion but by the time she saw Dr. Ram in May of 2017, she had significant improvement in the symptoms. The patient has had a longstanding history of major depression and anxiety disorder. There is some concern of PTSD type issues stemming from childhood and she is followed very closely by Dr. Amaro. She has been on Abilify for at least 7 years, I believe that the current dose. She is also on 450 milligrams of Wellbutrin, 20 milligrams 3 times a day of BuSpar, and 200 milligrams of sertraline. Her mood has been fairly stable although she admits to significant anxiety. Patient tells me that she has had memory issues for the last couple years or so. In December of 2016 she underwent complete neuropsychological testing by Dr. Lopez, and it showed very mild cognitive issues of a nonspecific nature and some significant anxiety. Overall there was not any significant dementia present. She felt that medication could be contributing. Patient has had a history of gait issues and weakness in her legs for at least 6 months. She has been diagnosed with peripheral neuropathy years ago, of uncertain etiology. I do not have any details regarding these records. She feels that she just can't keep her balance and will stumble when she walks. She feels pulled to the right and will fall because she trips. She is not dizzy or lightheaded in the head and has no vertigo. She feels that her legs are weak and she has chronic low back pain. She denies incontinence of urine. Her feet are numb. She has chronic pain and has been diagnosed with fibromyalgia for many years. She is on fentanyl patch and will take oxycodone rarely. She has chronic cervical and lumbar spine pain and she feels that her muscles are sore. She has chronic fatigue. Patient has had a history of TIAs, given to her over the years including August of 2010. At that time, she was admitted with an unresponsive episode where she was just blankly staring and after she came to she had double vision for a while. She came to the emergency room an MRI of the brain was unremarkable as was an EEG and carotid ultrasound. She was put on aspirin and this was called a TIA. Patient has sleep apnea and uses CPAP. She has had chronic tinnitus bilaterally for many years and probable mild hearing loss bilaterally. She has a history of intermittent visual hallucinations (sees patterns on plain tafoya at times and senses that someone is moving behind her) The evening of October 01, she was up walking around watching TV and she had the sudden onset of falling to the ground. She has no recall of this event. Apparently her heard a thud and found her unresponsive. He tried to sit her up and there was some question of visual hallucinations. The patient recalls none of this. She does not even remember the ambulance ride over. Apparently there was no incontinence of urine or tongue biting and no stiffening or jerking of the limbs. She was loose/floppy. She arrived to the emergency room at 2126 hours with a temperature 37.0, pulse 75, respiratory rate 18, blood pressure 177/63, and O2 saturation 98 percent She was described as twitchy in general and generally weak but her mental status was reasonable. CT scan of the head showed no acute changes. CBC and Chem profile were unremarkable. TSH and ammonia were normal as well. Tox screen was unremarkable. MRI of the brain showed no acute changes and was unchanged compared to August of 2010. There was some mild atrophy in general in mild nonspecific white matter changes only. I reviewed 2 different films and I concur that it is the same as compared to 2009. Pulse has been described as low but no orthostasis was found with 1 check yesterday. This morning she feels well except she has low back and neck pain and some bifrontal headache of a nonspecific nature. She is as twitchy and shaking now as usual. Past Medical/Surgical History Medical Problems: (1) Hallucinations Status: Acute (2) Hand contusion Status: Acute (3) Head injury, acute Status: Acute (4) Polypharmacy Status: Acute (5) Restless leg syndrome Status: Chronic Motor tic disorder Essential tremor Restless leg syndrome/periodic limb movement disorder of sleep Sleep apnea History of concussion April of 2017 Severe depression and anxiety Nonspecific cognitive issues with no significant dementia on neuropsychological testing. Gait disturbance and falls with history of generalized polyneuropathy Chronic spine pain and fibromyalgia History of TIAs on aspirin Syncope of uncertain etiology Hallucinations, visual, intermittent Post bilateral cataract surgery, hysterectomy, and tubal ligation Family History Mother age 72 with severe Parkinson's disease (was bed ridden from this disorder) and also had an MRI. She had severe anxiety and depression. Father age 83 of an [facility] Social History Patient never smoked cigarettes or used tobacco products and does not use alcohol. 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 She has 3 children and 5 grandchildren Smoking Status: Never smoker Smokeless Tobacco Use: No Alcohol Use: none Drug Use: none Marital Status: Housing Status: lives with significant other Occupation Status: retired Allergies Coded Allergies: Dog Dander (Verified Allergy, Unknown, UNKNOWN, 10/01/17) Molds and Smuts (Verified Allergy, Unknown, UNKNOWN, 10/01/17) POLLEN (Verified Allergy, Unknown, SEASONAL-LATE SUMMER/FALL, 10/01/17) Sulfa Antibiotics (Verified Allergy, Unknown, Unknown, 10/02/17) Current Inpatient Medications Current Inpatient Medications Medications (Trade) Dose Ordered Sig/Pippa Route Start Time Stop Time Status Last Admin Dose Admin Ondansetron HCl (Zofran Odt) 8 mg Q6H PRN PO 10/02/17 01:15 11/01/17 01:14 Potassium Chloride/Sodium Chloride 1,000 ml @ 100 mls/hr Q10H IV 10/02/17 02:30 11/01/17 02:29 10/03/17 03:42 100 MLS/HR Aspirin (Ecotrin Tab) 81 mg HS PO 10/02/17 21:00 11/01/17 20:59 10/02/17 21:10 81 MG Vitamin B Complex (Vitamin B Complex) 1 tab QAM PO 10/02/17 09:00 11/01/17 08:59 10/02/17 08:37 1 TAB Bupropion HCl (Wellbutrin-Xl Tab) 150 mg QAM PO 10/02/17 09:00 11/01/17 08:59 10/02/17 08:25 150 MG Bupropion HCl (Wellbutrin-Xl Tab) 300 mg QAM PO 10/02/17 09:00 11/01/17 08:59 10/02/17 08:25 300 MG Propranolol HCl (Inderal Tab) 10 mg BID PO 10/02/17 09:00 11/01/17 08:59 10/02/17 08:27 10 MG Ropinirole HCl (Requip Tab) 0.5 mg HS PO 10/02/17 21:00 11/01/17 20:59 10/02/17 21:08 0.5 MG Sertraline HCl (Zoloft Tab) 200 mg QAM PO 10/02/17 09:00 11/01/17 08:59 10/02/17 08:26 200 MG Cholecalciferol (Vitamin D Tab) 2,000 inter.unit QAM PO 10/02/17 09:00 11/01/17 08:59 10/02/17 08:25 2,000 INTER.UNIT Cyanocobalamin (Vitamin B-12 Tab) 5,000 mcg QAM PO 10/02/17 09:00 11/01/17 08:59 10/02/17 08:24 5,000 MCG Ranitidine HCl (zANTac TAB) 300 mg HS PO 10/02/17 21:00 11/01/17 20:59 10/02/17 21:09 300 MG Lorazepam (Ativan Inj) PRN Dosing -Active Protocol Q1H PRN IV 10/02/17 01:30 11/01/17 01:29 Gabapentin (Neurontin Cap) 400 mg TID PO 10/02/17 14:00 11/01/17 13:59 10/02/17 21:10 400 MG Aripiprazole (Abilify Tab) 5 mg QAM PO 10/03/17 09:00 11/02/17 08:59 Buspirone HCl (Buspar Tab) 20 mg TID PO 10/02/17 14:00 11/01/17 13:59 10/02/17 21:09 20 MG Gadobutrol (Gadavist) 7 mmol UD PRN IV 10/02/17 14:30 10/06/17 14:29 Review of Systems Constitutional: + weakness, + fatigue, No fever Eyes: No worsening of vision, No diplopia ENT: + hearing loss, + tinnitus, No trouble swallowing Respiratory: No cough, No shortness of breath Cardiovascular: No chest pain, No palpitations Abdomen: No pain, No nausea Musculoskeletal: + muscle pain, No joint pain Genitourinary - Female: No dysuria, No urinary incontinence Neurologic: + memory loss, + weakness, + numbness/tingling, + balance problems , No vertigo Psychiatric: + anxiety Endocrine: No fatigue Hematologic / Lymphatic: No abnormal bleeding/bruising Integumentary: No rash Allergic / Immunologic: No hives Physical Exam Vital Signs (Past 24 Hrs): Date Time Temp Pulse Resp B/P (MAP) Pulse Ox O2 Delivery O2 Flow Rate FiO2 10/03/17 07:55 59 122/59 (80) 10/03/17 07:55 56 127/60 (82) 10/03/17 07:54 69 173/78 (109) 10/03/17 07:18 36.8 52 18 150/75 (100) 98 Room Air 10/03/17 05:30 36.7 52 16 147/67 (93) 93 Room Air 10/03/17 04:00 Room Air 10/03/17 00:00 Room Air 10/02/17 23:45 36.7 51 18 167/72 (103) 95 Room Air 10/02/17 20:00 96 Room Air 10/02/17 19:31 36.6 49 18 152/83 (106) 96 Room Air 10/02/17 16:00 96 Room Air 10/02/17 15:26 58 134/64 (87) 93 10/02/17 15:26 66 126/82 (97) 10/02/17 15:25 36.4 56 18 129/91 (104) 94 Room Air 10/02/17 12:00 92 Room Air 10/02/17 11:40 36.8 55 18 128/75 (92) 92 Room Air Patient is right-handed. The patient is awake and alert. Speech is normal without aphasia or dysarthria. Mentation and thought processes are reasonable with conversation but she does have some short and longer term memory problems. Mood is good and affect is appropriate. She is pleasant and cooperative. Appearance and grooming are unremarkable. The discs are sharp with positive venous pulsations. There are no exudates, hemorrhages, or blood vessel changes seen. Pupils are 4mm bilaterally and reactive to light. Extraocular eye muscles are intact without nystagmus. Visual acuity and visual hardy seem normal grossly to confrontation. There are no deficits to sensation of the face bilaterally. Corneal reflexes are positive bilaterally. Facial strength and symmetry is normal bilaterally. Hearing seems intact grossly to voice and finger rub. Palate moves well without asymmetry. There is normal sternocleidomastoid and trapezius strength bilaterally. Tongue is midline with good strength bilaterally. Patient does have some twitches of the face at times but more twitches of her limbs, arms greater than legs. These twitches are intermittent and very brief occurring as isolated transients. They are myoclonic in appearance and involve small/isolated muscles She may have a very slight masked face, but this is questionable Neck is with full range of motion with some discomfort. There are no cervical bruits. There are no cranial or ocular bruits. Heart is without murmur. Cervical, thoracic, and lumbar spine are tender to palpation, including paraspinal muscles and spinous processes. There is no significant spasm Stance, standing by the bedside eyes open, feet together, has some truncal shakiness and she feels unsteady. It deteriorates completely with eyes closed. Her gait his narrow based and she shuffles some. She has decreased arm swing and turns on block. She requires assistance of 1. With outstretched arms there is no drift. There are no resting tremors. She does have coarse postural and action tremor bilaterally in the arms. There is no ataxia with [id number] testing. There is no heel to sharp ataxia in the legs. There is good facility in the hands. Motor strength is 5/5 diffusely in the arms bilaterally including deltoids, biceps, brachioradialis, wrist flexors and extensors, business systems developer, and intrinsic hand muscles. Motor strength is 5/5 diffusely in the legs bilaterally including hip flexors, quadriceps, hamstring, gastrocnemius, tibialis anterior, tibialis posterior, and peroneii muscles bilaterally. Toe extensors are normal and there is good bulk in the extensor digitorum brevis muscle bilaterally. I do not detect any focal weakness. The limbs have good tone without rigidity or spasticity, and there is no atrophy noted. Muscle bulk is normal, no myotonia noted to percussion, and no fasciculations seen. She has a diffuse tenderness to palpation of the medium to larger muscles, of a nonspecific mild nature, in all limbs. Sensory examination reveals reasonable sensation to touch but moderate decrease in vibratory sense in the feet bilaterally. Reflexes are 1/4 in the biceps, triceps, and brachioradialis tendons bilaterally. Quadriceps and Achilles tendon reflexes are 2/4 bilaterally. Toes are downgoing with plantar stimulation bilaterally. Peripheral pulses are present and of normal quality distally in all four limbs. There is no peripheral edema noted. Laboratory Results Past 24 Hours: 10/03/17 05:33 Red Blood Count 4.26, Mean Corpuscular Volume 90.6, Mean Corpuscular Hemoglobin 30.5, Mean Corpuscular Hemoglobin Concent 33.7, Mean Platelet Volume 9.9, Neutrophils (%) (Auto) 55.3, Lymphocytes (%) (Auto) 31.3, Monocytes (%) (Auto) 9.7, Eosinophils (%) (Auto) 2.7, Basophils (%) (Auto) 0.7, Neutrophils # (Auto) 3.23, Lymphocytes # (Auto) 1.83, Monocytes # (Auto) 0.57, Eosinophils # (Auto) 0.16, Basophils # (Auto) 0.04 10/03/17 05:33 Test 10/02/17 20:38 10/03/17 05:33 Urine Opiates Screen NEG (NEG) Urine Methadone, Qualitative NEG (NEG) Urine Barbiturates NEG (NEG) Urine Phencyclidine (PCP) Level NEG (NEG) Ur Amphetamine/Methamphetamine NEG (NEG) MDMA (Ecstasy) Screen POS (NEG) Urine Benzodiazepines Screen NEG (NEG) Urine Cocaine Metabolite NEG (NEG) Urine Marijuana (THC) NEG (NEG) White Blood Count 5.85 K/uL (4.8-10.8) Red Blood Count 4.26 M/uL (4.2-5.4) Hemoglobin 13.0 g/dL (12.0-16.0) Hematocrit 38.6 % (37-47) Mean Corpuscular Volume 90.6 fL (80-100) Mean Corpuscular Hemoglobin 30.5 pg (25-34) Mean Corpuscular Hemoglobin Concent 33.7 g/dl (32-36) Platelet Count 158 K/uL (130-400) Mean Platelet Volume 9.9 fL (7.4-10.4) Neutrophils (%) (Auto) 55.3 % Lymphocytes (%) (Auto) 31.3 % Monocytes (%) (Auto) 9.7 % Eosinophils (%) (Auto) 2.7 % Basophils (%) (Auto) 0.7 % Neutrophils # (Auto) 3.23 K/uL (1.4-6.5) Lymphocytes # (Auto) 1.83 K/uL (1.2-3.4) Monocytes # (Auto) 0.57 K/uL (0.11-0.59) Eosinophils # (Auto) 0.16 K/uL (0-0.5) Basophils # (Auto) 0.04 K/uL (0-0.2) RDW Standard Deviation 43.4 fL (36.4-46.3) RDW Coefficient of Variation 13.2 % (11.5-14.5) Immature Granulocyte % (Auto) 0.3 % Immature Granulocyte # (Auto) 0.02 K/uL (0.00-0.02) Prothrombin Time 11.2 SECONDS (9.0-12.0) Prothromb Time International Ratio 1.1 (0.9-1.1) Activated Partial Thromboplast Time 25.4 SECONDS (21.0-31.0) Partial Thromboplastin Ratio 1.0 Anion Gap 8.0 mmol/L (3-11) Est Creatinine Clear Calc Drug Dose 46.5 ml/min Estimated GFR () 66.7 Estimated GFR (Non- 57.5 BUN/Creatinine Ratio 18.7 (10-20) Calcium Level 8.5 mg/dl (8.5-10.1) Magnesium Level 2.3 mg/dl (1.8-2.4) Total Bilirubin 0.4 mg/dl (0.2-1) Direct Bilirubin < 0.1 mg/dl (0-0.2) Aspartate Amino Transf (AST/SGOT) 15 U/L (15-37) Alanine Aminotransferase (ALT/SGPT) 25 U/L (12-78) Alkaline Phosphatase 70 U/L (45-117) Total Protein 6.3 gm/dl (6.4-8.2) Albumin 3.6 gm/dl (3.4-5.0) Imaging MRI OF THE BRAIN WITHOUT AND WITH IV CONTRAST CLINICAL HISTORY: Altered mental status. COMPARISON STUDY: MRI of the brain September 04, [address] October 01, 2017. TECHNIQUE: Utilizing a 1.5 Ana magnet and dedicated coil, multiplanar, multiecho imaging of the brain was performed pre and postcontrast administration. IV administration of 7 mL of Gadavist contrast was uneventful. FINDINGS: There are no foci of restricted diffusion. No acute intracranial hemorrhage, midline shift or mass effect is present. Ventricular system is stable. Basilar cisterns are patent. There are no extra-axial collections. Flow-voids for the major intracranial vessels are present. There is no intracranial mass or pathologic enhancement. Prominence of extra-axial CSF spaces is unchanged and due to atrophy. A few punctate foci of signal abnormality suggest minimal small vessel disease. There is mild mucosal thickening of the left maxillary and ethmoid sinuses. Calvarial signal is normal. IMPRESSION: 1. No acute intracranial findings. 2. No change in appearance of the brain since MRI of September 04, 2010. Electronically signed by: Maximo Nunez M.D. 10/02/2017 2:49 PM Impression This actually is a very complicated patient neurologically and psychiatrically. She has a number of chronic issues and is on multiple medications. 1. Acute unresponsive episode October 01 of uncertain etiology. I suspect hypotension/bradykinesia related drop in central nervous system perfusion leading to the syncopal event. There is no evidence to suggest stroke or TIA in this patient. There is no evidence to suggest a seizure. I cannot entirely exclude cardiac dysrhythmia. She currently has hypotension and bradycardia, likely from propranolol. Interestingly, she has had a number of these episodes over the years including a significant event last April. Today, her neurologic examination is at baseline with no focal neurologic findings, meningeal signs, or encephalopathy. 2. Longstanding motor tic disorder with "twitches" and brief myoclonic type movements of small muscles/partial limbs diffusely She has never had vocalizations or anything that would lead me to believe she has Tourette's syndrome. She is currently not controlled although gabapentin may help. 3. Essential tremor This is significant and includes her voice. She is not getting any help with low-dose propranolol and I believe she is having significant vascular effects from the medication. 4. Restless leg syndrome and periodic limb movement disorder of sleep She is on a very low dose of Requip in the evening and she does not believe this is helping. After discussing her case at length with Dr. Amaro, the patient is very resistant to any medication that would make her sleep better because she insists on getting up in the middle the night to check her 's blood sugar. She has a history of sleep apnea on CPAP 5. History of concussion April of 2017 from a fall, with resolution of concussion syndromes. 6. Severe, longstanding major depression and anxiety disorder with PTSD. 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 He has tried to change/lower medications many times over the years but she is very brittle with her mood and anxiety. He has tried to discontinue Abilify in the past but this has always created worse problems. She has a history of visual hallucinations. After listening to the patient, I wonder if these may be more poor vision phenomenon than true psychotic type hallucinations. Dr. Amaro agrees with this. 7. Chronic spine pain along with chronic fibromyalgia with diffuse myalgias and fatigue She is on narcotics (which I do not agree with for fibromyalgia) but it does help her pain. 8. Gait disturbance and falls. This patient does have a sensory ataxia from her generalized polyneuropathy. She also has some parkinsonism to her gait. 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 He She has a great fall risk and probably needs a walker for support. 9. History of TIAs I am not certain this patient ever had a true TIA Nevertheless, I would continue aspirin 81mg daily Plan 1. This patient needs physical and occupational therapy and likely needs a walker for support. She might benefit from a stay at [facility] 2. Discontinue propranolol as it is likely not helping and is probably lowering her blood pressure and pulse too much. 3. Since the patient will refuse any medication that makes her sleep better at night (because she has to get up in the middle of the night to check her 's blood sugar), it will be very difficult to treat her various movement disorder issues and sleep issues. We could increase Requip to 0.5 milligrams in the morning, 0.5 milligrams in the afternoon, and 1 milligram at night, which would combat parkinsonism and help her restless leg syndrome sleep issues, without creating sedation. This should be done slowly as an outpatient. Start with 0.5 milligram twice daily 4. In addition, we could consider increasing gabapentin to 400 milligrams in the morning, 400 milligrams in the afternoon, and 900milligrams at night. I would only initiate this if increasing Requip does not help. Again, this would be decided as an outpatient. 5. Could consider CT angiography of the head and neck as an outpatient to further delineate any vascular stenoses which could relate to syncope. This could be done as an outpatient. 5. Patient needs to follow up with Dr. Amaro and Dr. Ram I have spoken at length with Dr. Amaro, Dr. Yost, the patient and her daughter at bedside, reviewed MRI films and records, and discussed differential diagnosis and treatment options spending total of 170 minutes with this case.
--- NOTE | 2017-10-03 10:37 | NUR ---
PSYCHIATRIC LIAISON NURSE: Met with patient, she reports she may be discharged today and is doing well. She states she has a follow up appointment with Dr. Amaro on October 30 at 1140. Will attempt to call to move this appointment sooner if possible. Addendum: 10/03/17 at 1048 by Amber Phan RN Called Dr. Amaro's office requesting sooner appointment, had to leave a message. Asked them to contact patient directly if a sooner appointment is available as she may be discharged today. Addendum: 10/03/17 at 1236 by Amber Phan RN Dr. Amaro's office called back and were able to schedule her for October 16 at 2 pm. Will update d/c instructions and inform the patient of this change
--- NOTE | 2017-10-03 12:12 | NUR ---
Case Management: Met with pt to discuss discharge plans. Per Dr Yost, Dr Naranjo had suggested [facility] for pt as home health nursing visits are not needed. I spoke with pt regarding this service and she was in agreement. I have left a message on [employer]'s voice mail. I want to make sure they participate with pt's insurance. Pt does have a rollator walker for use in the house if needed. Pt lives with spouse but she does the driving and can get to appointments. Pt's dgt is in [facility] from [place] and can provide transport home today. Addendum: 10/03/17 at 1254 by Penny Vizcarra SERV Call back from [place] at [facility] and they can accept pt. Will fax referral information and instructions.
[2017-10-03] MEDS ORDERED: RQP1 PO (12:30)
--- NOTE | 2017-10-03 12:39 | Discharge Instructions ---
Discharge Instructions Date of Service Oct 03, 2017. 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 Instructions / Follow-Up Instructions / Follow-Up Medications: - REQUIP: dose changed to 0.5mg in the morning and in the evening prior to bed, this is an increase from previous dose that was just 0.5mg at bedtime - INDERAL: stop this medication Gait disturbance with falls, poor balance appreciate consultation from Dr. 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 Anthony follow up closely with Dr. Shaffer in one week, call office to make appointment Dr. Amaro in 2-3 weeks [address] previously scheduled Dr. Anthony in one month, call for appointment - Visual hallucinations? more likely blurred vision, not true hallucinations recommend making an eye appointment as soon as possible Current Hospital Diet Patient's current hospital diet: Regular Diet Discharge Diet Recommended Diet: Regular Diet Pending Studies Studies pending at discharge: no Medical Emergencies . Who to Call and When: Medical Emergencies: If at any time you feel your situation is an emergency, please call 911 immediately. . Non-Emergent Contact Non-Emergency issues call your: Primary Care Provider, Neurologist, Specialist (psychiatrist) Call Non-Emergent contact if: you have any medication questions . . "Provider Documentation" section prepared by Arturo Yost. . VTE Core Measure Inpt VTE Proph given/why not?: SCD's [place] Drug Monitoring Program Search Results: no issues identified
--- NOTE | 2017-10-03 15:30 | NUR ---
A: The patient is being discharged to home with health services, and the patient's daughter is at the bedside to provide transportation home. The patient will be receiving home PT services through [facility], and their phone number was provided in the discharge instructions. The discharge instructions, including medication list and changes, follow-up appointments and home safety, were reviewed with both the patient and her daughter who verbalize understanding. Patient's left hand saline lock was discontinued, catheter tip intact. The patient is alert and oriented x4, denies pain, and vital signs are stable on room air. Belongings were collected and are being sent home with the patient. A volunteer was called to provide wheelchair transportation to the main entrance.
--- NOTE | 2017-10-04 07:47 | Discharge Summary ---
Discharge Summary Date of Service Oct 03, 2017. Discharge Summary Admission Date: Oct 02, 2017 at 01:10 Discharge Date: Oct 03, 2017 Discharge Disposition: Home with services Principal Diagnosis: Gait disturbance Problems/Secondary Diagnoses: Anxiety/Depression Insomnia Restless leg syndrome Tremors Secondary Parkinsonism Immunizations: Have You Had Influenza Vaccine: Yes Influenza Vaccine Date: Sep 04, 2010 History of Tetanus Vaccine?: Unknown History of Pneumococcal: Yes History of Hepatitis B Vaccine: No Procedures: MRI brain - normal Consultations: Psychiatry Neurology Medication Reconciliation New Medications: Ropinirole HCl (Ropinirole HCl) 1 Mg Tab 0.5 MG PO BID, #60 TAB 3 Refills take one in morning and one at bedtime Continued Medications: Amantadine Hcl (Amantadine Hcl) 100 Mg Cap 100 MG PO QAM, CAP MAY REPEAT AT HS IF NEEDED FOR RESTLESSNESS. Aripiprazole (Abilify) 5 Mg Tab 5 MG PO QAM, TAB Aspirin (Aspirin Ec) 81 Mg Tab 81 MG PO HS B-Complex Vitamins (B Complex) 1 Cap Cap 1 CAP PO QAM Biotin (Biotin) 5,000 Mcg Cap 75614 UNITS PO QAM Bupropion (Wellbutrin-Xl) 300 Mg Tabcr 300 MG PO QAM, TAB TOTAL DOSE OF 450MG Bupropion (Wellbutrin Sr) 150 Mg Ertab 150 MG PO QAM, TAB TOTAL DOSE OF 450MG Buspirone Hcl (Buspirone Hcl) 10 Mg Tab 20 MG PO TID, TAB Cholecalciferol (Vitamin D3) 2,000 Unit Tab 2000 UNITS PO QAM Cyanocobalamin (Cvs B-12) 5,000 Mcg Sub 5000 MCG PO QAM Fentanyl (Fentanyl) 50 Mcg Tdsy 50 MCG TOP Q48H Gabapentin (Neurontin) 100 Mg Cap 100 MG PO TID TOTAL DOSE OF 400MG Gabapentin (Neurontin) 300 Mg Cap 300 MG PO TID, CAP TOTAL DOSE 400MG Oxycodone Ir (Roxicodone Ir) 5 Mg Tab 5 MG PO DIRECTED PRN for Severe Pain, TAB Ranitidine (Zantac) 300 Mg Tab 300 MG PO HS, TAB Sertraline HCl (Sertraline HCl) 100 Mg Tab 200 MG PO QAM Discontinued Medications: Propranolol (Inderal) 10 Mg Tab 10 MG PO BID, TAB Ropinirole (Requip) 0.5 Mg Tab 0.5 MG PO HS, TAB Discharge Exam Patient feeling better than the time of admission, more steady on her feet. She is using her rolling walker. Long, detailed evaluation by neurology today, Dr. Naranjo. I had a long talk with him, appreciate recommendations. Going to increase Requip to BID. Discussed with patient, she understands plan. CM to arrange home physical therapy and family going to arrange for home help. Review of Systems: Constitutional: + weakness, No fever, No chills, No sweats, No weight loss, No fatigue, No problem reported Eyes: No worsening of vision, No eye pain, No redness, No discharge, No diplopia, No problem reported ENT: No hearing loss, No unusual epistaxis, No nasal symptoms, No sore throat, No tinnitus, No dental problems, No trouble swallowing, No problem reported Respiratory: No cough, No sputum, No wheezing, No shortness of breath, No dyspnea on exertion, No dyspnea at rest, No hemoptysis, No problem reported Cardiovascular: No chest pain, No orthopnea, No PND, No edema, No claudication, No palpitations, No problem reported Abdomen: No pain, No nausea, No vomiting, No diarrhea, No constipation, No GI bleeding, No problem reported Musculoskeletal: + joint pain, + muscle pain, No swelling, No calf pain Genitourinary - Female: No dysuria, No urinary frequency, No urinary urgency , No urinary incontinence, No urinary retention, No hematuria Neurologic: + weakness, + numbness/tingling, + balance problems, No memory loss, No paralysis, No vertigo, No problem reported Psychiatric: + depression symptoms, + anxiety, + insomnia, No anhedonism, No substance abuse, No problem reported Endocrine: + fatigue, No excessive thirst, No excessive urination, No problem reported Hematologic / Lymphatic: No abnormal bleeding/bruising, No clotting problems , No swollen lymph nodes, No night sweats, No problem reported Integumentary: No rash, No itch, No new/changing skin lesions, No color change, No bleeding, No problem reported Physical Exam: General Appearance: WD/WN, no apparent distress Eyes: normal inspection, EOMI, sclerae normal ENT: normal ENT inspection, hearing grossly normal, pharynx normal Neck: supple, no adenopathy, no JVD, trachea midline Respiratory/Chest: chest non-tender, lungs clear, normal breath sounds, no respiratory distress, no accessory muscle use Cardiovascular: regular rate, rhythm, no edema, no gallop, no JVD, no murmur , normal peripheral pulses Abdomen / GI: normal bowel sounds, non tender, soft, no organomegaly Extremities: normal inspection, no calf tenderness, normal capillary refill , no pedal edema, normal range of motion, pelvis stable Neurologic/Psychiatric: 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, + abnormal gait (swaying when walking/standing, + Rhomberg test), + motor weakness, + sensory deficit ( feet bilaterally, neuropathy), + pertinent finding (tremors, no cogwheeling) Skin: normal color, warm/dry, no rash Lymphatic: no adenopathy Hospital Course 72 yo female with h/o fibromyalgia, restless leg, chronic pain, PTSD, depression presents with progressive weakness, poor balance, falls at home and then had hallucinations - Hallucinations and encephalopathy: resolved completely appreciate psychiatry consult, unclear that it would be caused by polypharmacy, no new medications or dose changes discussed further with Dr. Naranjo, he feels like the hallucinations are actually poor vision recommend getting dedicated eye exam as outpatient - Weakness, poor balance, falls: gait disturbance is likely multifactorial, between sensory ataxia, secondary Parkinsonism and orthostasis no clear history of syncope as she has never lost consciousness MRI brain normal, looks the same since 2009 given her tremors, slow shuffling gait, poor balance, poor coordination, will ask neurology for their opinion - secondary Parkinsonism from Abilify PT/OT consults Dr. Naranjo recommends increasing Requip to 0.5mg BID for a short while and then increasing to 0.5mg BID with additional 1mg at bedtime if that does not help enough, can always increase Neurontin at bedtime patient would likely benefit from rehab but she refuses any possibility of rehab, needs to be home to take care of d/c to home with Physical therapy in addition to some home aides H/o TIA: continue aspirin Dr. Naranjo questions whether this is accurate since there are no previous MRIs depicting ischemia Restless leg syndrome-- Continue Requip 0.5 mg BID, dose increased while hospitalized GERD-- Continue ranitidine 300 mg by mouth at bedtime Pain management regimen-- continue Fentanyl and Oxycodone Nutraceuticals-- Continue B complex, Biotin, B12 and vitamin D 3 Total Time Spent: Greater than 30 minutes This includes examination of the patient, discharge planning, medication reconciliation, and communication with other providers. Discharge Instructions Please refer to the electronic Patient Visit Report (Discharge Instructions) for additional information. Follow-Up Dr. Shaffer in one week Dr. Amaro in 2-[address] Anthony in one month Additional Copies To Oleg Amaro M.D.; Aleah Shaffer D.O.; Cynthia Ram D.O.
== END 2017-10-03 15:30 | disposition home health service (06) | DRG 56 ==
LOC: EDBD 21:19 → C.EDB 21:20 → C.MED 10-02 01:10 → EDBEDREQ 10-02 01:40 → ENRESERV 10-02 01:59
PROVIDERS: ADMIT Hospitalist; ATTEND Internal Medicine
DX: G21.9 Secondary parkinsonism, unspecified (principal); G93.40 Encephalopathy, unspecified; R27.8 Other lack of coordination; S60.221A Contusion of right hand, initial encounter; T43.505A Adverse effect of unspecified antipsychotics and neuroleptics, initial encounter; G25.81 Restless legs syndrome; I95.2 Hypotension due to drugs; T46.905A Adverse effect of unspecified agents primarily affecting the cardiovascular system, initial encounter; F32.9 Major depressive disorder, single episode, unspecified; F41.9 Anxiety disorder, unspecified; K21.9 Gastro-esophageal reflux disease without esophagitis; M79.7 Fibromyalgia; F43.10 Post-traumatic stress disorder, unspecified; H54.7 Unspecified visual loss; Z79.82 Long term (current) use of aspirin; G25.0 Essential tremor; G62.9 Polyneuropathy, unspecified; Z86.73 Personal history of transient ischemic attack (TIA), and cerebral infarction without residual deficits; Z88.2 Allergy status to sulfonamides; Y92.019 Unspecified place in single-family (private) house as the place of occurrence of the external cause; W19.XXXA Unspecified fall, initial encounter

== ENCOUNTER → 2017-11-07 | Outpatient (CLI) | payer BC ==
[~2017-11-07] MED LIST changes: +AMAN100C18 PO; +BUSP-8 PO; -GABA-1693 PO; +GABA1CAP PO; -L-ME1CAP PO; -OMEP20CA9 PO; +OXYC1TAB3 PO; -ROPI0.5T15 PO; +RQP1 PO
--- NOTE | 2017-11-07 13:48 | DIAGNOSTIC IMAGING REPORT ---
ULTRASOUND RIGHT UPPER EXTREMITY NONVASCULAR CLINICAL HISTORY: Palpable lump. COMPARISON STUDY: No priors. FINDINGS: Real-time, grayscale, and color flow sonography of the soft tissues overlying the right deltoid muscle is performed. There is a complex solid and cystic focus within the subcutaneous fat at this site, superficial to and separate from the underlying musculature. This measures 1.2 x 0.6 x 1.7 cm. The internal cystic focus measures up to 7 mm. No internal flow seen on color imaging. IMPRESSION: There is an 1.7 cm solid and cystic nodule within the subcutaneous soft tissues at the site of interest. This is pathologically indeterminant and may represent a small nerve sheath tumor. Clinical correlation will be required. Electronically signed by: Nikolsa Badillo M.D. 11/07/2017 1:47 PM Dictated Date/Time: 11/07/2017 1:41 PM
== END | disposition home or self-care (01) ==
LOC: C.ULTR 13:06
PROVIDERS: ATTEND Family Medicine
DX: R22.30 Localized swelling, mass and lump, unspecified upper limb (principal)